=== PATIENT | female | born 1980 | race Caucasian/White ===

== ENCOUNTER 2021-09-04 07:16 | Emergency (ER) | payer SELFPAY ==
[~2021-09-04] VITALS: Ht 154.9 cm; Wt 52.2 kg
[2021-09-04 07:18] VITALS: BP 114/76
--- NOTE | 2021-09-04 07:27 | NUR ---
PT AMB TO BED 11.
--- NOTE | 2021-09-04 07:54 | NUR ---
DR. MONTERO BEDSIDE EVALUATING PT
[2021-09-04] MEDS ORDERED: KETOROLAC 30 MG/ML VIAL IVP ONE (08:00)
[2021-09-04] MEDS ORDERED: ONDANSETRON 4 MG/2 ML VIAL IVP ONE (08:00)
[2021-09-04] MEDS ORDERED: NACL 0.9% 1,000 ML IV SCH (08:00)
--- NOTE | 2021-09-04 08:09 | NUR ---
PT TAKEN TO CT VIA W/C
--- NOTE | 2021-09-04 08:09 | NUR ---
18G IV ESTABLISHED IN R AC AND BLOODWORK COLLECTED AND HANDED TO [employer]ER OPERATOR. URINE HANDED TO [employer] BO[employer]ER OPERATOR BEDSIDE
--- NOTE | 2021-09-04 08:09 | NUR ---
40Y FEMALE BIB SELF WITH C/O RLQ ABD PAIN, N/V X TODAY AND C/O URINARY BURNING SENSATION X 2 DAYS. PER PATIENT SHE EXPERIENCED SIMILAR SYMPTOMS X1 MONTH AGO, BUT RESOLVED ON ITS OWN. PT STATED PAIN STARTED AGAIN LAST NIGHT IN HER RLQ THAT IS PRESSURE LIKE PAIN, 10/10. PT ALSO EXPERINCINE N/V, BUT DENIES ANY DIARRHEA. ABDOMEN IS SOFT AND TENDER IN RLQ UPON PALPATION. PT A&OX4, SKIN DRY AND INTACT. PMH: DENIES NKA
[2021-09-04 08:13] LABS: APPEARANCE,URINE SL CLOUDY (CLEAR); BILIRUBIN,URINE NEGATIVE (NEGATIVE); BLOOD, URINE 3+ (NEGATIVE); COLOR,URINE YELLOW (YELLOW); LEUKOCYTE ESTERASE ,URINE 2+ (NEGATIVE); NITRITE, URINE NEGATIVE (NEGATIVE); PH,URINE 6.5 (5.0-9.0); UGLUCOSE NEGATIVE (NEGATIVE)
--- NOTE | 2021-09-04 08:19 | NUR ---
pt returned to bed [address] via w/c
[2021-09-04 08:36] LABS: RBC,URINE 0-5 /HPF (0-5)
[2021-09-04 08:38] LABS: ALBUMIN 3.8 g/dL (3.4-5.0); ANION GAP 14.1 (8-16); CARBON DIOXIDE 26.9 mmol/L (21-32); CREATININE 0.7 mg/dL (0.6-1.3); TOTAL BILIRUBIN 0.7 mg/dL (0.0-1.0)
[2021-09-04 08:40] LABS: OTHER CASTS, URINE None Seen /LPF (None Seen)
[2021-09-04 08:57] LABS: WHITE BLOOD COUNT (AUTO) 9.1 K/uL (4.8-10.8)
[2021-09-04 08:58] LABS: CORRECTED WHITE BLOOD COUNT 9.1 K/uL (4.5-11.0); HEMATOCRIT 36.2 % (36-48); HEMOGLOBIN 11.9 g/dL (12.0-16.0); MEAN CORPUSCULAR HEMOGLOBIN 29 pg (27-31); MEAN CORPUSCULAR HGB CONC 33 g/dL (33-37); MEAN CORPUSCULAR VOLUME 86.3 fL (80-94); PLATELET COUNT (AUTO) 218 K/uL (140-450); RED BLOOD CELL COUNT(AUTO) 4.19 MIL/uL (4.20-5.40); RED CELL DISTRIBUTION WIDTH 13.5 % (11.6-13.7)
[2021-09-04 08:59] LABS: BASOPHILS % (AUTO) 1.6 % (0.0-2.0); EOSINOPHILS # (AUTO) 0.1 K/uL (0-0.4); LYMPHOCYTES # (AUTO) 1.6 K/uL (2.5-16.5); LYMPHOCYTES % (AUTO) 17.6 % (20.5-51.1); MONOCYTES # (AUTO) 0.3 K/uL (0.8-1.0); NEUTROPHILS % (AUTO) 77.4 % (42.2-75.2)
[2021-09-04 09:00] LABS: BASOPHILS # (AUTO) 0.2 K/uL (0.00-0.22)
[2021-09-04] MEDS ORDERED: IBUP-2213 PO (09:31)
[2021-09-04] MEDS ORDERED: CIPR500T4 PO (09:31)
[2021-09-04] MEDS ORDERED: TAMS0.4C96 PO (09:31)
[2021-09-04] MEDS ORDERED: ACET-8386 PO (09:31)
--- NOTE | 2021-09-04 09:36 | NUR ---
IV removed, catheter intact and site benign. Applied folded 4x4 gauze and tape to stop bleeding.
--- NOTE | 2021-09-04 09:36 | NUR ---
Patient appears to be resting comfortably in bed. Vital Signs within normal limits. Respirations even and unlabored.
[2021-09-04 09:43] VITALS: BP 102/59
--- NOTE | 2021-09-04 09:44 | NUR ---
Patient discharged with v/s stable. Written and verbal after care instructions ABOUT UTI AND KIDNEY STONES given and explained. Patient alert, oriented and verbalized understanding of instructions. Ambulatory with steady gait. All questions addressed prior to discharge. ID band removed. Patient advised to follow up with PMD. Rx of HYDROCODONE/ACETAMINOPHEN, CIRPO, IBUPROFEN, ANF FLOMAX given. Patient educated on indication of medication including possible reaction and side effects. Opportunity to ask questions provided and answered.
== END 2021-09-04 09:43 | disposition home or self-care (01) ==
LOC: MED 07:16
DX: N20.0 Calculus of kidney (principal); N39.0 Urinary tract infection, site not specified
CPT/HCPCS: 36415; 74176; 80053; 81001; 81025; 83690; 85025; 87086; 96361; 96374; 96375; 99284; J1885; J2405; J7030